=== PATIENT | female | born 1990 | race African-American/Black ===

== ENCOUNTER 2020-10-17 08:08 | Day surgery (SDC) | payer OTHER ==
[2020-10-13 14:03] VITALS: BMI 43.2
[2020-10-17] MEDS ORDERED: LIDOCAINE HCL/PF 2% SDV 5ML VIAL ONE (09:12)
[2020-10-17] MEDS ORDERED: PROPOFOL 20 ML ONE ×4 (09:12)
[2020-10-17 09:30] VITALS: BP 110/72; PULSE 78; TEMP 98.4
== END 2020-10-17 09:38 | disposition home or self-care (01) ==
LOC: FASU-ENDO 08:08
PROVIDERS: ATTEND Internal Medicine Gastroenterology
PROC: 0DB78ZX Excision of Stomach, Pylorus, Via Natural or Artificial Opening Endoscopic, Diagnostic (ICD-10-PCS; 2020-10-17)
PROC: 0DB98ZX Excision of Duodenum, Via Natural or Artificial Opening Endoscopic, Diagnostic (ICD-10-PCS; principal; 2020-10-17 08:49)
DX: K29.50 Unspecified chronic gastritis without bleeding (principal); K31.89 Other diseases of stomach and duodenum; K95.09 Other complications of gastric band procedure
CPT/HCPCS: 81025; 88305-TC; 88342-TC

== ENCOUNTER 2020-11-21 10:00 | Inpatient (IN) | payer OTHER ==
[2020-12-23 11:21] VITALS: BMI 44.1
[2020-12-27] MEDS ORDERED: MIDAZOLAM HCL 2 MG/2 ML SINGLE DOSE VIAL ONE (10:00)
[2020-12-27] MEDS ORDERED: BUPIVACAINE HCL/PF 0.5% (5 MG/ML) 30 ML VIAL IJ ONE (10:00)
[2020-12-27] MEDS ORDERED: BUPIVACAINE HCL/PF 0.5% (5MG/ML) 10 ML VIAL ONE (10:00)
[2020-12-27] MEDS ORDERED: BUPIVACAINE LIPOSOME/PF (EXPAREL) 266 MG/20 ML VIAL ONE (10:00)
[2020-12-27] MEDS ORDERED: ONDANSETRON 4 MG/2 ML VIAL IVPUSH PRN ×2 (10:31→14:26)
[2020-12-27] MEDS ORDERED: HYDROmorphone HCL CARPU-JECT 1 MG/1 ML DISP.SYRIN IVPUSH PRN (10:31)
[2020-12-27] MEDS ORDERED: LACTATED RINGERS SOLUTION 1,000 ML IV SCH (10:45)
[2020-12-27] MEDS ORDERED: fentaNYL CITRATE 250 MCG/5 ML VIAL ONE (10:49)
[2020-12-27] MEDS ORDERED: PROPOFOL 20 ML ONE ×2 (10:49→13:40)
[2020-12-27] MEDS ORDERED: ROCURONIUM BROMIDE 50 MG/5 ML SYRINGE ONE ×2 (10:52→13:17)
[2020-12-27] MEDS ORDERED: SUCCINYLCHOLINE CHLORIDE 200 MG/10 ML SYRINGE ONE ×3 (10:52→13:40)
[2020-12-27] MEDS ORDERED: NEOSTIGMINE METHYLSULFATE 0.5 MG/1 ML - 10 ML MDV ONE (13:28)
[2020-12-27] MEDS ORDERED: GLYCOPYRROLATE 0.2 MG/1 ML VIAL ONE (13:28)
[2020-12-27] MEDS ORDERED: BUPIVACAINE HCL/PF 0.25% (2.5MG/ML) 10 ML VIAL ONE (13:40)
[2020-12-27] MEDS ORDERED: HYDROmorphone HCL/PF 1 MG/ML VIAL IVPB PRN (13:53)
[2020-12-27] MEDS ORDERED: SODIUM CHLORIDE 1,000 ML IV SCH (14:00)
[2020-12-27] MEDS: METOCLOPRAMIDE HCL INJECTION 10 MG/2 ML VIAL IVPUSH SCH ×2 (14:23→21:06)
[2020-12-27] MEDS ORDERED: ACETAMINOPHEN 1000 MG/100 ML VIAL (NON FORMULARY) IVPB ONE (14:26)
[2020-12-27] MEDS ORDERED: FAMOTIDINE 20 MG PREMIXED IVPB IVPB ONE (14:30)
[2020-12-27] MEDS ORDERED: FAMOTIDINE 20 MG/50 ML IVPB 20 MG/50 ML MG IVPB ONE (14:37)
[2020-12-27 14:56] LABS: HEMATOCRIT 33.9 % (32.4-45.2); HEMOGLOBIN 10.7 GM/dl (10.7-15.3); MCH 20.5 pg (25.7-33.7); MCHC 31.4 g/dl (32.0-36.0); MEAN CELL VOLUME 65.1 fl (80-96); MEAN PLT VOLUME 7.8 fl (7.5-11.1); PLATELET COUNT 387 10^3/uL (134-434); RBC 5.21 M/mm3 (3.60-5.2); RDW 19.3 % (11.6-15.6); WHITE BLOOD COUNT 9.6 K/mm3 (4.0-10.8)
[2020-12-27 15:00] LABS: ALBUMIN 3.8 g/dl (3.4-5.0); BILIRUBIN,TOTAL 0.5 mg/dl (0.2-1); CALCIUM 8.5 mg/dl (8.5-10); CREATININE 0.8 mg/dl (0.55-1.3); TOT PROT 7.2 g/dl (6.4-8.2)
[2020-12-27] MEDS ORDERED: SIMETHICONE 80 MG TAB.CHEW (FP) PO PRN (17:09)
[2020-12-27] MEDS: ONDANSETRON 4 MG/2 ML VIAL IVPUSH PRN ×2 (18:14→21:43)
[2020-12-27] MEDS: FAMOTIDINE 20 MG/50 ML IVPB 20 MG/50 ML MG IVPB SCH (21:06)
[2020-12-27 21:08] LABS: HEMATOCRIT 34.2 % (32.4-45.2); HEMOGLOBIN 10.4 GM/dl (10.7-15.3); MCHC 30.5 g/dl (32.0-36.0); MEAN CELL VOLUME 65.1 fl (80-96); MEAN PLT VOLUME 7.9 fl (7.5-11.1); PLATELET COUNT 377 10^3/uL (134-434); RBC 5.26 M/mm3 (3.60-5.2); RDW 19.4 % (11.6-15.6)
[2020-12-27 21:09] LABS: MCH 19.9 pg (25.7-33.7)
[2020-12-27] MEDS: HYDROmorphone HCL/PF 1 MG/ML VIAL IVPB PRN (21:15)
[2020-12-27 21:24] LABS: ALBUMIN 3.7 g/dl (3.4-5.0); BILIRUBIN,TOTAL 0.6 mg/dl (0.2-1); CALCIUM 8.6 mg/dl (8.5-10); CREATININE 0.8 mg/dl (0.55-1.3); TOT PROT 7.3 g/dl (6.4-8.2)
[2020-12-27 22:54] VITALS: TEMP 98.8
[2020-12-28] MEDS: METOCLOPRAMIDE HCL INJECTION 10 MG/2 ML VIAL IVPUSH SCH ×2 (02:00→09:32)
[2020-12-28] MEDS: ONDANSETRON 4 MG/2 ML VIAL IVPUSH PRN (03:20)
[2020-12-28] MEDS: HYDROmorphone HCL/PF 1 MG/ML VIAL IVPB PRN ×2 (03:25→09:30)
[2020-12-28 06:25] VITALS: BP 93/60; PULSE 64
[2020-12-28 08:35] LABS: HEMATOCRIT 29.2 % (32.4-45.2); HEMOGLOBIN 9.4 GM/dl (10.7-15.3); MCH 20.5 pg (25.7-33.7); PLATELET COUNT 327 10^3/uL (134-434); RBC 4.57 M/mm3 (3.60-5.2); RDW 19.4 % (11.6-15.6); WHITE BLOOD COUNT 9.8 K/mm3 (4.0-10.8)
[2020-12-28 08:42] LABS: ALBUMIN 3.4 g/dl (3.4-5.0); BILIRUBIN,TOTAL 0.8 mg/dl (0.2-1); CALCIUM 8.7 mg/dl (8.5-10); CREATININE 0.8 mg/dl (0.55-1.3); TOT PROT 6.7 g/dl (6.4-8.2)
[2020-12-28] MEDS ORDERED: oxyCODONE HCL 5 MG TABLET PO PRN (09:10)
[2020-12-28] MEDS ORDERED: ACETAMINOPHEN 325 MG TABLET (FP) PO PRN (09:10)
[2020-12-28] MEDS ORDERED: SODIUM CHLORIDE 1,000 ML IV SCH (09:15)
[2020-12-28] MEDS: FAMOTIDINE 20 MG/50 ML IVPB 20 MG/50 ML MG IVPB SCH (09:31)
== END 2020-12-28 13:30 | disposition home or self-care (01) | DRG 620 ==
LOC: FM/S 12-27 08:59
PROVIDERS: ADMIT Surgery; ATTEND Surgery
PROC: 0DP64CZ Removal of Extraluminal Device from Stomach, Percutaneous Endoscopic Approach (ICD-10-PCS; 2020-12-27)
PROC: 0DB64Z3 Excision of Stomach, Percutaneous Endoscopic Approach, Vertical (ICD-10-PCS; principal; 2020-12-27 11:39)
PROC: 0FB24ZX Excision of Left Lobe Liver, Percutaneous Endoscopic Approach, Diagnostic (ICD-10-PCS; 2020-12-27 11:39)
PROC: 0DJ04ZZ Inspection of Upper Intestinal Tract, Percutaneous Endoscopic Approach (ICD-10-PCS; 2020-12-27 11:39)
DX: E66.01 Morbid (severe) obesity due to excess calories (principal); T85.598A Other mechanical complication of other gastrointestinal prosthetic devices, implants and grafts, initial encounter; Z68.41 Body mass index [BMI] 40.0-44.9, adult; K66.0 Peritoneal adhesions (postprocedural) (postinfection); R16.0 Hepatomegaly, not elsewhere classified; R10.13 Epigastric pain; R11.10 Vomiting, unspecified; Y84.8 Other medical procedures as the cause of abnormal reaction of the patient, or of later complication, without mention of misadventure at the time of the procedure
CPT/HCPCS: 36415; 74240-TC-FY; 80053; 84703; 85027; 94760; J0131; Q9967